=== PATIENT | male | born 1995 | race Hispanic/Latino ===

== ENCOUNTER 2020-02-20 17:48 | Emergency (ER) | payer OTHER ==
[~2020-02-20] VITALS: Ht 180.3 cm; Wt 69.4 kg
[2020-02-20] MEDS ORDERED: BENZONATATE 100 MG CAP PO ONE (18:30)
[2020-02-20] MEDS ORDERED: METOCLOPRAMIDE 10 MG TAB PO ONE (18:30)
[2020-02-20] MEDS ORDERED: ALBUTEROL 90 MCG/ACT 8GM HFA INHALER INH ONE (18:30)
[2020-02-20] MEDS ORDERED: NAPROXEN 250 MG TAB PO ONE (18:30)
--- NOTE | 2020-02-20 19:25 | REPVR ---
PROCEDURE INFORMATION: Exam: XR Chest, 2 Views Exam date and time: 02/20/2020 6:44 PM Age: 24 years old Clinical indication: Cough; Additional info: SOB TECHNIQUE: Imaging protocol: XR of the chest Views: 2 views. COMPARISON: No relevant prior studies available. FINDINGS: Lungs: Unremarkable. No consolidation. No pulmonary edema. Pleural space: Unremarkable. No pleural effusion or pneumothorax is identified. Heart/Mediastinum: Unremarkable. No cardiomegaly. Bones/joints: Unremarkable. IMPRESSION: No acute findings. Electronically signed by: Sandro Churchill On 02/20/2020 19:25:11 PM
[2020-02-20] MEDS ORDERED: AMOX500C PO (19:39)
[2020-02-20] MEDS ORDERED: NAPR-837 PO (19:39)
[2020-02-20] MEDS ORDERED: TESS100C PO (19:39)
[2020-02-20] MEDS ORDERED: PROAAER10 INH (19:39)
[2020-02-20 19:44] VITALS: BP 138/68
[2020-02-20] MEDS ORDERED: AMOXICILLIN 500 MG CAP PO ONE (19:45)
== END 2020-02-20 19:59 | disposition home or self-care (01) ==
LOC: M ED 17:48
DX: J02.0 Streptococcal pharyngitis (principal); Z79.51 Long term (current) use of inhaled steroids; Z79.1 Long term (current) use of non-steroidal anti-inflammatories (NSAID); Z79.899 Other long term (current) drug therapy